=== PATIENT | female | born 1950 | race Caucasian/White ===

== ENCOUNTER 2022-06-01 18:09 | Observation (INO) ==
[2022-06-01 19:10] LABS: Basophils # 0.1 10*3/uL (0.0-0.2); Basophils % 0.9 % (0.0-0.8); Eosinophils # 0.1 10*3/uL (0.0-0.87); Eosinophils % 1.9 % (0.00-10.9); Hematocrit 40.2 VOL% (35.7-47.0); Hemoglobin 12.9 GM/DL (12.0-16.0); Immature Granulocytes % 0.9 %; Immature Granulocytes Absolute 0.06 #; Lymphocytes # 0.8 10*3/uL (1.4-4.0); Lymphocytes % 11.8 % (21.3-54.2); Mean Corpuscular HGB Conc 32.1 GM/DL (32-36); Mean Corpuscular Volume 92.8 FL (87-102); Mean Platelet Volume 10.3 FL (9.6-12.0); Monocytes # 0.6 10*3/uL (0.11-0.8); Monocytes % 8.1 % (1.7-12.7); Neutrophils % 76.4 % (38.7-73.9); Platelet Count 190 T/CUMM (130-400); Red Blood Count 4.33 MC/CUMM (3.8-5.5); Red Cell Distribution Width 13.2 % (9.3-17.3); White Blood Count 6.8 T/CUMM (4-12)
[2022-06-01] MEDS ORDERED: SODIUM CHLORIDE 0.9% 1,000 ML IV STA (19:26)
[2022-06-01 19:37] LABS: Alanine Aminotransferase 35 U/L (13-56); Albumin 3.3 G/DL (3.4-5.0); Alkaline Phosphatase 82 U/L (45-117); Aspartate Amino Transferase 33 U/L (0-37); Bilirubin,Total < 0.39 MG/DL (0.20-1.00); Blood Urea Nitrogen 12 MG/DL (7-18); Calcium 8.9 MG/DL (8.5-10.1); Carbon Dioxide 28 MMOL/L (21-32); Chloride 111 MMOL/L (98-107); Glucose 105 MG/DL (74-106); Potassium 3.8 MMOL/L (3.5-5.1); Sodium 143 MMOL/L (136-145)
[2022-06-01 19:44] LABS: INR 0.9; PT Patient Result 10.3 SECS (10.1-12.1); Partial Thromboplastin Time 21.1 SECS (23.7-32.9)
[2022-06-01 19:58] LABS: Thyroid Stimulating Hormone 0.211 uIU/ml (0.358-3.74)
[2022-06-01 20:58] LABS: Bilirubin,Urine Negative (Negative); Blood, Urine Negative (Negative); Glucose,Urine (UA) Negative (Negative); Ketones,Urine Negative (Negative); Nitrite,Urine Negative (Negative); Protein,Urine Negative (Negative); Urine Appearance Clear (Clear); Urine Color Yellow (Yellow); Urine Urobilinogen 0.2 eU/dL (<2.0)
[2022-06-01 21:01] LABS: Hyaline Casts,Urine 1 /LPF (0-3); Mucus,Urine Occasional /LPF (Occasional); RBC,Urine 1 /HPF (0-4)
[2022-06-01 21:14] LABS: Barbiturates Screen,Urine Negative (Negative); Benzodiazepines Screen,Urine Negative (Negative); Cannabinoid Screen,Urine Negative (Negative); Opiate Screen,Urine Negative (Negative); Phencyclidine Screen,Urine Negative (Negative)
[2022-06-02] MEDS ORDERED: ONDANSETRON 4 MG/2 ML VIAL IV PRN (00:08)
[2022-06-02] MEDS ORDERED: guaiFENesin/DM ER 600-30 MG TABLET PO PRN (00:08)
[2022-06-02] MEDS ORDERED: hydrALAZINE 20 MG/1 ML VIAL IV PRN (00:08)
[2022-06-02] MEDS ORDERED: diphenhydrAMINE CAP 25 MG CAPSULE PO PRN (00:08)
[2022-06-02] MEDS ORDERED: ZALEPLON 5 MG CAPSULE PO PRN (00:08)
[2022-06-02] MEDS ORDERED: NICOTINE 21 MG/24 HR PATCH TRANSDERM PRN (00:08)
[2022-06-02] MEDS ORDERED: ACETAMINOPHEN 325 MG TABLET PO PRN (00:08)
[2022-06-02 05:04] LABS: Basophils # 0.1 10*3/uL (0.0-0.2); Basophils % 0.7 % (0.0-0.8); Eosinophils # 0.2 10*3/uL (0.0-0.87); Eosinophils % 2.5 % (0.00-10.9); Hematocrit 36.6 VOL% (35.7-47.0); Hemoglobin 12.1 GM/DL (12.0-16.0); Immature Granulocytes % 0.4 %; Immature Granulocytes Absolute 0.03 #; Lymphocytes # 1.4 10*3/uL (1.4-4.0); Lymphocytes % 20.6 % (21.3-54.2); Mean Corpuscular HGB Conc 33.1 GM/DL (32-36); Mean Corpuscular Volume 92.9 FL (87-102); Mean Platelet Volume 10.4 FL (9.6-12.0); Monocytes # 0.7 10*3/uL (0.11-0.8); Monocytes % 10.8 % (1.7-12.7); Platelet Count 180 T/CUMM (130-400); Red Blood Count 3.94 MC/CUMM (3.8-5.5); Red Cell Distribution Width 13.2 % (9.3-17.3); White Blood Count 6.8 T/CUMM (4-12)
[2022-06-02 05:21] LABS: Calcium 8.7 MG/DL (8.5-10.1)
[2022-06-02] MEDS: LEVOTHYROXINE 100 MCG TABLET PO SCH (10:09)
[2022-06-02] MEDS: POTASSIUM CHLORIDE 10 MEQ TABLET PO SCH ×2 (10:09→20:48)
[2022-06-02] MEDS: TOPIRAMATE 200 MG TABLET PO SCH ×2 (10:09→20:48)
[2022-06-02] MEDS: PANTOPRAZOLE 40 MG TABLET PO SCH (10:09)
[2022-06-02] MEDS: OXcarbazepine 300 MG TABLET PO SCH (20:47)
[2022-06-03] MEDS: LEVOTHYROXINE 100 MCG TABLET PO SCH (05:40)
[2022-06-03 06:50] LABS: Basophils # 0.1 10*3/uL (0.0-0.2); Basophils % 1.1 % (0.0-0.8); Eosinophils # 0.3 10*3/uL (0.0-0.87); Eosinophils % 4.4 % (0.00-10.9); Hematocrit 39.3 VOL% (35.7-47.0); Hemoglobin 12.4 GM/DL (12.0-16.0); Immature Granulocytes % 0.2 %; Immature Granulocytes Absolute 0.01 #; Lymphocytes # 1.3 10*3/uL (1.4-4.0); Lymphocytes % 23.3 % (21.3-54.2); Mean Corpuscular HGB Conc 31.6 GM/DL (32-36); Mean Corpuscular Volume 93.6 FL (87-102); Mean Platelet Volume 10.7 FL (9.6-12.0); Monocytes # 0.7 10*3/uL (0.11-0.8); Monocytes % 12.9 % (1.7-12.7); Neutrophils % 58.1 % (38.7-73.9); Platelet Count 181 T/CUMM (130-400); Red Cell Distribution Width 13.2 % (9.3-17.3); White Blood Count 5.7 T/CUMM (4-12)
[2022-06-03 07:04] LABS: Calcium 9.1 MG/DL (8.5-10.1); Osmolality,Calculated 280.3 MOS/KG (273-304); Potassium 4.2 MMOL/L (3.5-5.1)
[2022-06-03] MEDS: PANTOPRAZOLE 40 MG TABLET PO SCH (08:53)
[2022-06-03] MEDS: OXcarbazepine 300 MG TABLET PO SCH (08:53)
[2022-06-03] MEDS: TOPIRAMATE 200 MG TABLET PO SCH (08:53)
[2022-06-03] MEDS: POTASSIUM CHLORIDE 10 MEQ TABLET PO SCH (08:53)
[2022-06-03 11:42] VITALS: BP 103/71
== END 2022-06-03 12:38 | disposition home or self-care (01) ==
LOC: EDUNIT# → EDBD → N.EDINP 18:09 → N.ED 18:09 → N.2W 06-02 06:51
PROVIDERS: ADMIT Internal Medicine; ATTEND Internal Medicine